=== PATIENT | male | born 2000 | race Caucasian/White ===

== ENCOUNTER 2024-03-23 19:52 | Emergency (ER) | payer BC, SELFPAY ==
[2024-03-23 19:58] VITALS: BP 137/74; PULSE 102; RESP 17; TEMP 36.5; O2SAT 97; BMI 18.8
--- NOTE | 2024-03-23 20:05 | DI.RAD.S_ITS ---
PROCEDURE: XR FINGER LT MIN 2V INDICATIONS: laceration, r/o bone involvement TECHNIQUE: AP hand, 2 views of the 2nd finger(s) acquired. COMPARISON: None. FINDINGS: Bones: No fractures or dislocations. No suspicious bony lesions. Soft tissues: No suspicious soft tissue calcifications. Second digit soft tissue laceration seen adjacent to the proximal phalanx. No foreign body seen. IMPRESSION: No fracture or foreign body adjacent to 2nd digit soft tissue laceration. Dictated by: Katlyn Villagran M.D. on 03/23/2024 at 21:06 Approved by: Katlyn Villagran M.D. on 03/23/2024 at 21:07
[2024-03-23] MEDS: TET,DIPH,PERTUSS(ACELL),VAC/PF 0.5 ML SYRINGE IM (20:16)
--- NOTE | 2024-03-23 22:10 | ED.WOUNDLAC ---
HPI - Wound/Laceration General Chief Complaint: Wound/Laceration Stated Complaint: finger laceration Time Seen by Provider: 03/23/24 22:10 Source: patient Mode of arrival: Ambulatory History of Present Illness HPI narrative: 23-year-old male accidentally cut his left index finger with a hunting knife while camping at [facility]. He had been cutting meat with a knife prior to accidentally cutting his finger. Local bleeding was stopped with direct pressure. He feels like he can move his finger well, no numbness to the distal portion of the finger. No other injuries. Last tetanus shot more than 5 years ago. No known drug allergies. Related Data Previous Rx's Medication Instructions Recorded cephalexin 500 mg capsule 500 mg PO QID 7 days #28 caps 03/23/24 Allergies Allergy/AdvReac Type Severity Reaction Status Date / Time No Known Drug Allergies Allergy Verified 03/23/24 19:58 Patient History Social History Smoking Status: Current every day smoker Smoking Status: Current every day smoker alcohol intake frequency: 0-2 drinks per day Substance Use Type: does not use Exam Narrative Exam Narrative: GENERAL: Well-developed patient, in mild distress. HEAD: Atraumatic. Normocephalic. EYES: Pupils equal round and reactive. Extraocular motions intact. No scleral icterus. No injection or drainage. ENT: Nose without bleeding, purulent drainage. Throat without erythema, tonsillar hypertrophy or exudate. Airway patent. NECK: Trachea midline. Non tender CARDIOVASCULAR: Regular rate and rhythm without murmurs, gallops, or rubs. RESPIRATORY: Clear to auscultation. Breath sounds equal bilaterally. No wheezes, rales, or rhonchi. GASTROINTESTINAL: Abdomen soft, non-tender, nondistended. EXTREMITIES: Oblique linear laceration 1.5 cm radial aspect of index left index finger, no visible foreign body or tendon or bony structure. Intact to light touch distal finger. Local pressure bleeding controlled. No other fingers or hand or upper extremity injuries BACK: Nontender without deformity or crepitance. No flank tenderness. NEURO: AOx3. SKIN: No rash or erythema of visible areas Initial Vital Signs Initial Vital Signs: Vital Signs Temperature 97.7 F 03/23/24 19:58 Pulse Rate 102 H 03/23/24 19:58 Respiratory Rate 17 03/23/24 19:58 Blood Pressure 137/74 03/23/24 19:58 Pulse Oximetry 97 03/23/24 19:58 Oxygen Delivery Method Room Air 03/23/24 19:58 Procedures Laceration Repair Laceration 1: Time of procedure: 23:24 Site: hand Side (If applicable): left Size (cm): 1.5 Description: linear Depth: simple, single layer Local Anesthetic: lidocaine 1% Amount of anesthesia used (mL): 2 Pre-repair: wound explored and irrigated extensively Skin layer closed with: nylon Skin layer suture size: 4-0 Number of sutures: 4 Technique: simple, interrupted Course Orders Ordered: ED Orders 03/23/24 20:05 XR finger LT min 2V Stat Discontinued Medications Bacitracin (Bacitracin Oint 0.9 Gm Pckt) 1 applic TOP NOW ONE Stop: 03/23/24 23:26 Last Admin: 03/23/24 23:28 Dose: 1 applic Documented By: MATT Cephalexin HCl (Cephalexin 250 Mg Capsule) 500 mg PO NOW ONE Stop: 03/23/24 23:19 Last Admin: 03/23/24 23:23 Dose: 500 mg Documented By: MATT Diphtheria/Tetanus/Acell Pertussis (Tet,Diph,Pertuss(Acell),Vac/Pf 0.5 Ml Syringe) 0.5 ml IM .ONCE ONE Stop: 03/23/24 20:03 Last Admin: 03/23/24 20:16 Dose: 0.5 ml Documented By: KAUSHAL Lidocaine HCl (Lidocaine 1% 20 Ml) 20 ml INJ INTRA-OP ONE Stop: 03/23/24 22:40 Last Admin: 03/23/24 23:23 Dose: 20 ml Documented By: MATT Vital Signs Vital signs: Vital Signs - 8 hr 03/23/24 23:37 Pulse Rate 82 Respiratory Rate 18 Blood Pressure 114/64 Pulse Oximetry 100 Oxygen Delivery Method Room Air MDM - Wound/Laceration Imaging Data Extremity x-ray #1: Radiologist's Impression: [address] [address] XRay Report Signed Patient: Cyril Coates MR#: [id number] : 2000 Acct:[id number] Age/Sex: 23 / M Date of Service: 03/23/24 Loc: ED Accession Number: [id number] Procedure: XR finger LT min 2V Ordering Provider: Israel Hernández MD PROCEDURE: XR FINGER LT MIN 2V INDICATIONS: laceration, r/o bone involvement TECHNIQUE: AP hand, 2 views of the 2nd finger(s) acquired. COMPARISON: None. FINDINGS: Bones: No fractures or dislocations. No suspicious bony lesions. Soft tissues: No suspicious soft tissue calcifications. Second digit soft tissue laceration seen adjacent to the proximal phalanx. No foreign body seen. IMPRESSION: No fracture or foreign body adjacent to 2nd digit soft tissue laceration. Dictated by: Katlyn Villagran M.D. on 03/23/2024 at 21:06 Approved by: Katlyn Villagran M.D. on 03/23/2024 at 21:07 [facility] Narrative Medical decision making narrative: Accidental right index finger laceration proximally 5 hours ago, tetanus updated. Contaminated with hunting knife at [facility]. P.o. Keflex. See procedure note primary wound closure after irrigation. Discharge Plan Departure Patient Disposition: Home Clinical Impression: Laceration Instructions: DI for Laceration Repair Activity Restrictions/Additional Instructions: Accidental laceration to left index finger with hunting knife that had been used for cutting meat, implant into wood for storing at [facility], likely contaminated wound. X-ray showed no obvious foreign body or fracture. Intact to light touch. Irrigation of the wound. No obvious injuries on examination after numbing, no obvious tendon structures or foreign bodies or joint structures. Oral Keflex antibiotic given, prescription for 7 day course. Antibiotic ointment and dressing applied, finger splint applied. Wound check in 2 days. Suture removal in 7-10 days likely. Tetanus updated in the emergency department tonight. Recheck for wound check in 2 days, with your regular provider, or here in the emergency department if he can not find other arrangements. Return to this/nearest emergency department for any change worsening symptoms or any concerns prior Prescriptions: New cephalexin 500 mg capsule 500 mg PO QID 7 Days Qty: 28 0RF Referrals: Miscellaneous,DoctorMD [Primary Care Provider] - Stand Alone Forms: Patient Portal/API
[2024-03-23] MEDS: cephALEXin 250 MG CAPSULE 500 MG PO (23:23)
[2024-03-23] MEDS: LIDOCAINE 1% 20 ML INJ (23:23)
[2024-03-23] MEDS: BACITRACIN OINT 0.9 GM PCKT 1 APPLIC TOP (23:28)
[2024-03-23 23:37] VITALS: BP 114/64; PULSE 82; RESP 18; O2SAT 100
== END 2024-03-23 23:40 | disposition home or self-care (01) ==
PROVIDERS: Emergency Provider Emergency Medicine
DX: S61.216A Laceration without foreign body of right little finger without damage to nail, initial encounter (principal); W26.0XXA Contact with knife, initial encounter; Z23 Encounter for immunization
CPT/HCPCS: 12001; 73140; 90471; 99283; 99284; 90715